=== PATIENT | female | born 2000 | race Caucasian/White ===

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

== ENCOUNTER → 2021-05-31 | Outpatient (CLI) | payer OTHER ==
[2021-05-31 10:25] VITALS: BP 123/84; PULSE 63; RESP 17; TEMP 98.3
--- NOTE | 2021-05-31 13:28 | P.HPOB ---
History of Present Illness H&P Date: 05/31/21 Chief Complaint: The patient is here for her routine gynecologic exam. This is a 21-year-old with an LMP of 05/30/2021. The patient is here to establish with this office. It has been about 4 years since her last pelvic exam. She had a Mirena IUD placed in May 2017. She was amenorrheic with the Mirena IUD until about 6 months ago when she has had episodes of brief spotting about monthly. This is not bothersome to her. She believes she will be having the IUD removed in the upcoming year to attempt . She has been happy with the Mirena IUD as a form of control. She is without gynecologic complaints. Review of Systems The patient's weight has been stable over the last year. She denies respiratory, cardiac, or G.I. problems. Past Medical History Past Medical History: Asthma, Hypertension (She has not been taking blood pressure medication after her prescription ran out one year ago.) Additional Past Medical History / Comment(s): Childhood asthma not requiring medications at this time. Hypertension after her last . 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 Ovarian cysts as a teen. History of Any Multi-Drug Resistant Organisms: None Reported Past Surgical History: No Surgical Hx Reported Past Anesthesia/Blood Transfusion Reactions: No Reported Reaction Past Psychological History: Anxiety, Depression (Current stress with no significant depression at this time.) Smoking Status: Current some day smoker (About 10 cigarettes per week), Vaper (Daily) Past Alcohol Use History: None Reported Past Drug Use History: Marijuana (Daily use at at bedtime.) Additional History: She has been with her boyfriend for 12 years and he live together. She works at [employer]. - Past Family History Mother Family Medical History: No Reported History Additional Family Medical History / Comment(s): Maternal grandfather had throat cancer. Father Family Medical History: GERD/Reflux Additional Family Medical History / Comment(s): Grandparents have hypertension. Medications and Allergies Allergies Allergy/AdvReac Type Severity Reaction Status Date / Time No Known Allergies Allergy Verified 05/07/17 07:22 Exam Vital Signs Temp Pulse Resp BP Pulse Ox 05/31/21 10:21 98.3 F 63 17 123/84 100 Intake and Output 0405/31/21 05/31/21 22:59 06:59 14:59 Other: Weight 85.275 kg Height 5 feet 0 inches, weight 188 pounds, BMI 36.7. This is a well-developed well-nourished white female who is alert and oriented times 3 in no acute distress. HEENT: Within normal limits. NECK: Supple without mass or thyromegaly. CHEST AND LUNGS: Clear to auscultation. HEART: Regular rate and rhythm. BREASTS: Are without mass or discharge. AXILLARY EXAM: Negative for adenopathy. BACK: Negative for CVA tenderness. ABDOMEN: Soft, nontender, without palpable masses. PELVIC EXAM: Normal external genitalia. Cervix and vagina appear normal. No IUD string is visible. There is no cervical motion tenderness. There is no unusual discharge. There is no evidence of prolapse. The uterus is midposition, nongravid size and nontender. There are no palpable adnexal masses or tenderness. RECTAL EXAM: Deferred. EXTREMITIES: Nontender. IMPRESSION: 1. 21-year-old female with normal gynecologic exam. 2. History of Mirena IUD placed 4 years ago with no visible string on exam today. Differential diagnosis will include normal IUDs location with short string within the cervix, IUD expulsion, abnormal uterine positioning, or uterine perforation. 3. History of hypertension after her last currently off of blood pressure medication with no significant blood pressure elevation today. PLAN: 1. Pap smear (cytology only) was performed. 2. Self breast awareness was discussed with the patient. We have also discussed symptoms associated with inflammatory breast cancer. 3. GC and chlamydia screening was obtained from the cervix. 4. Pelvic ultrasound was recommended to determine the location of the IUD. The order slip was given to the patient for this. I have recommended that she use a backup method of control or abstinence at this time. If the IUD is in the proper location, nothing needs to be done until she wants it removed. At that time she can call to make an appointment for removal. If it cannot be removed with simple probing of the endocervix to find the string, she may need to be referred for hysteroscopic removal. She understands the IUD is approved for 5 years use and she should have it removed prior to 12 months from now. 5. I have recommended that she check her own blood pressure on a regular basis and establish with a PCP to determine if she needs to be restarted on antihypertensive medication. We have discussed how weight loss, good nutrition and regular exercise may also help with blood pressure control. 6. When she decides to actively attempting and have the IUD removed, we have discussed how a daily multivitamin with folic acid would be important. 7. The patient was instructed to keep a menstrual calendar and call if she is having menstrual problems. At this time scant menstrual periods with the Mirena IUD is considered normal. 8. She was advised to return in one year for her annual well woman exam and as needed.
[2021-06-02 08:17] LABS: C. trachomatis,PCR Negative (Neg,Equiv); Chlamydia trachomatis Source Cervix; N. gonorrhoeae,PCR Negative (Neg,Equiv); Neisseria Source Cervix
== END ==
LOC: WWCWWP 10:03
PROVIDERS: ATTEND Obstetrics & Gynecology
DX: Z01.419 Encounter for gynecological examination (general) (routine) without abnormal findings (principal); I10 Essential (primary) hypertension; J45.909 Unspecified asthma, uncomplicated; F41.9 Anxiety disorder, unspecified; F17.210 Nicotine dependence, cigarettes, uncomplicated; Z92.0 Personal history of contraception
CPT/HCPCS: 87491; 87591

== ENCOUNTER → 2021-06-16 | Outpatient (CLI) | payer OTHER ==
--- NOTE | 2021-06-16 07:53 | US ---
EXAMINATION TYPE: US pelvic complete DATE OF EXAM: 06/16/2021 COMPARISON: US 2017 CLINICAL HISTORY: T83.32XD DISPLACEMENT INTRAUTERINE DEVICE. IUD placement TECHNIQUE: . Transabdominal sonographic images of the pelvis were acquired. Date of LMP: 06/03/2021 EXAM MEASUREMENTS: Uterus: 8.0 x 4.1 x 5.0 cm Endometrial Stripe: 0.6 cm Right Ovary: 3.6 x 2.4 x 2.5 cm Left Ovary: 2.7 x 1.5 x 2.8 cm 1. Uterus: anteverted 2. Endometrium: IUD appears in place 3. Right Ovary: wnl 4. Left Ovary: wnl 5. Bilateral Adnexa: wnl 6. Posterior cul-de-sac: wnl IMPRESSION: IUD is in place. Examination is otherwise unremarkable.
== END | disposition home or self-care (01) ==
LOC: RADUSWWP 06:58
PROVIDERS: ATTEND Obstetrics & Gynecology
DX: T83.32XD Displacement of intrauterine contraceptive device, subsequent encounter (principal); Y76.8 Miscellaneous obstetric and gynecological devices associated with adverse incidents, not elsewhere classified
CPT/HCPCS: 76856

== ENCOUNTER → 2022-09-11 | Outpatient (CLI) | payer OTHER ==
--- NOTE | 2022-09-11 08:39 | P.HPOB ---
History of Present Illness H&P Date: 09/11/22 Chief Complaint: The patient is here for her routine gynecologic exam. This is a 22-year-old with an LMP of 12/21/2022. The patient has a Mirena IUD in place since May 2017. The patient would like to get in the near future. She is requesting the Mirena IUD be removed. She was seen at the health department and they attempted to remove it but the string was not visible. She was referred to Dr. Rick who attempted to remove it without success. She plans to see a different INSPECTOR OF DREDGING in [place] for a , but has not yet seen that doctor. She recently started having menstrual periods and had been amenorrheic after her Mirena IUD was placed 5 years ago. She is without gynecologic complaints. Review of Systems The patient has gained 22 pounds over the last year. She denies respiratory, cardiac, or G.I. problems. Past Medical History Past Medical History: Asthma, Hypertension (She has not been taking blood pressure medication after her prescription ran out one year ago.) Additional Past Medical History / Comment(s): Childhood asthma not requiring medications at this time. Hypertension after her last . 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 Ovarian cysts as a teen. History of Any Multi-Drug Resistant Organisms: None Reported Past Surgical History: No Surgical Hx Reported Past Anesthesia/Blood Transfusion Reactions: No Reported Reaction Past Psychological History: Anxiety, Depression (Current stress with no significant depression at this time.) Smoking Status: Vaper (Daily) Past Alcohol Use History: None Reported Additional Past Alcohol Use History / Comment(s): She states she quit smoking cigarettes but does vape. Past Drug Use History: Marijuana Additional History: She has smoked marijuana in the past, but quit in 2021. She has been with her boyfriend for since 2009 and lives with him. She works at near at [employer]. - Past Family History Mother Family Medical History: No Reported History Additional Family Medical History / Comment(s): Maternal grandfather had throat cancer. Father Family Medical History: GERD/Reflux Additional Family Medical History / Comment(s): Grandparents have hypertension. Medications and Allergies Home Medications Medication Instructions Recorded Confirmed Type Vit No.179/Iron/Folic 1 tab PO DAILY 09/11/22 09/11/22 History [ Tablet] Allergies Allergy/AdvReac Type Severity Reaction Status Date / Time No Known Allergies Allergy Verified 09/11/22 07:59 Exam Intake and Output 09/10/22 09/11/22 09/11/22 22:59 06:59 14:59 Other: Weight 95.254 kg Blood pressure 121/76, height 5 foot 0 inch, weight 210 pounds, temperature 97.8, pulse 65, pulse oximeter 100%. This is a well-developed well-nourished heavyset white female who is alert and oriented times 3 in no acute distress. HEENT: Within normal limits. NECK: Supple without mass or thyromegaly. CHEST AND LUNGS: Clear to auscultation. HEART: Regular rate and rhythm. BREASTS: Are without mass or discharge. AXILLARY EXAM: Negative for adenopathy. BACK: Negative for CVA tenderness. ABDOMEN: Soft, nontender, without palpable masses. PELVIC EXAM: Normal external genitalia. Cervix and vagina appear normal. There is no IUD string visible. There is no unusual discharge. There is no evidence of prolapse. The uterus is midposition, nongravid size and nontender. There are no palpable adnexal masses or tenderness. Several attempts to locate the IUD string using a Q-tip, endocervical curette, and pointed forceps were used to probe the endocervix without success. RECTAL EXAM: Deferred. EXTREMITIES: Nontender. IMPRESSION: 1. 22-year-old female with Mirena IUD in place since May 2017, with normal gynecologic exam. 2. The Mirena IUD string is not visible and I was unable to locate the string despite probing the endocervix. 3. Patient desires to attempt in the near future. PLAN: 1. Pap smear was deferred since she had a negative Pap smear on 05/31/2021. 2. Self breast awareness was discussed. 3. GC and Chlamydia screening was obtained from the cervix. 4. I have recommended that she establish with the INSPECTOR OF DREDGING in [place] who she was planning on seeing for an upcoming . She should discuss how the Mirena IUD is in place and she wants it removed. She can't see that INSPECTOR OF DREDGING for possible hysteroscopic removal of the IUD. 5. Patient will continue to take a daily multivitamin with folic acid. She should also keep a menstrual calendar. We have discussed how it is important to avoid quitting things into her body such as medications and I have also recommended that she quit that she quit vaping due to risks to her body as well as potential risks to the fetus if she does get . 6. She was advised to return in one year for her annual well woman exam or to establish with another doctor for IUD removal and possible .
[2022-09-11 08:47] VITALS: BP 121/76; PULSE 65; RESP 16; TEMP 97.8
[2022-09-12 14:16] LABS: C. trachomatis,PCR Negative (Negative)
[2022-09-12 14:31] LABS: N. gonorrhoeae,PCR Negative (Negative)
== END ==
LOC: WWCWWP 07:38
PROVIDERS: ATTEND Obstetrics & Gynecology
DX: J45.909 Unspecified asthma, uncomplicated (principal); I10 Essential (primary) hypertension; N83.209 Unspecified ovarian cyst, unspecified side; Z01.419 Encounter for gynecological examination (general) (routine) without abnormal findings; Z97.5 Presence of (intrauterine) contraceptive device; Z87.891 Personal history of nicotine dependence
CPT/HCPCS: 87491; 87591

== ENCOUNTER → 2022-09-28 | Outpatient (CLI) | payer OTHER ==
[2022-09-28 15:01] LABS: Basophils % (A) 0 %; Eosinophils # (A) 0.1 k/uL (0-0.7); Eosinophils % (A) 1 %; HGB 13.9 gm/dL (11.4-16.0); Lymphocytes # (A) 2.6 k/uL (1.0-4.8); Lymphocytes % (A) 31 %; MCH 29.1 pg (25.0-35.0); MCHC 33.1 g/dL (31.0-37.0); MCV 87.8 fL (80.0-100.0); Monocytes # (A) 0.4 k/uL (0-1.0); Monocytes % (A) 5 %; Neutrophils # (A) 5.1 k/uL (1.3-7.7); Neutrophils % (A) 61 %; Platelet Count 249 k/uL (150-450); RBC 4.78 m/uL (3.80-5.40); RDW 12.8 % (11.5-15.5); WBC 8.3 k/uL (3.8-10.6)
== END ==
LOC: PAT 13:52
PROVIDERS: ATTEND Obstetrics & Gynecology
DX: Z01.818 Encounter for other preprocedural examination (principal); Z87.891 Personal history of nicotine dependence
CPT/HCPCS: 85025

== ENCOUNTER 2022-10-08 06:02 | Day surgery (SDC) | payer OTHER ==
[~2022-10-08 06:02] MED LIST: Pre Op ABX Message 1 EACH MISC MISCELLANE ONE
[2022-10-08] MEDS ORDERED: HYDROmorphone 0.5 MG/0.5 ML SYRINGE IVP PRN (06:47)
[2022-10-08] MEDS ORDERED: DEXAMETHASONE SOD PHOSPHATE 4 MG/ML 1 ML VIAL IV ONE (06:47)
[2022-10-08] MEDS ORDERED: ONDANSETRON 4 MG/2 ML VIAL IVP ONE (06:47)
[2022-10-08] MEDS ORDERED: LACTATED RINGERS 1,000 ML IV SCH (06:47)
[2022-10-08] MEDS ORDERED: ONDANSETRON 4 MG/2 ML VIAL ONE (06:50)
--- NOTE | 2022-10-08 07:05 | P.HPOB ---
History of Present Illness H&P Date: 10/08/22 Chief Complaint: retained IUD 22 year old presents for D&C hysteroscopy and removal of IUD.The IUD was placed 5 years ago and is due to be removed. The IUD was attempted to be removed in the office without success. US showed the IUD within the endometrium. Review of Systems All systems: negative Constitutional: Denies chills, Denies fever Eyes: denies blurred vision, denies pain Ears, nose, mouth and throat: Denies headache, Denies sore throat Cardiovascular: Denies chest pain, Denies shortness of breath Respiratory: Denies cough Gastrointestinal: Denies abdominal pain, Denies diarrhea, Denies nausea, Denies vomiting Genitourinary: Denies dysuria, Denies hematuria Musculoskeletal: Denies myalgias Integumentary: Denies pruritus, Denies rash Neurological: Denies numbness, Denies weakness Psychiatric: Denies anxiety, Denies depression Endocrine: Denies fatigue, Denies weight change Past Medical History Past Medical History: Asthma, Hypertension Additional Past Medical History / Comment(s): Childhood asthma not requiring medications at this time. Hypertension after her last . 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 Ovarian cysts as a teen. History of Any Multi-Drug Resistant Organisms: None Reported Past Surgical History: No Surgical Hx Reported Past Anesthesia/Blood Transfusion Reactions: No Reported Reaction Past Psychological History: Anxiety, Depression Smoking Status: Vaper Past Alcohol Use History: None Reported Additional Past Alcohol Use History / Comment(s): She states she quit smoking cigarettes but does vape. Past Drug Use History: Marijuana - Past Family History Mother Family Medical History: No Reported History Additional Family Medical History / Comment(s): Maternal grandfather had throat cancer. Father Family Medical History: GERD/Reflux Additional Family Medical History / Comment(s): Grandparents have hypertension. Medications and Allergies Home Medications Medication Instructions Recorded Confirmed Type Vit No.179/Iron/Folic 1 tab PO DAILY 09/11/22 10/08/22 History [ Tablet] Allergies Allergy/AdvReac Type Severity Reaction Status Date / Time No Known Allergies Allergy Verified 10/08/22 06:41 Exam Osteopathic Statement: *. No significant issues noted on an osteopathic structural exam other than those noted in the History and Physical/Consult. Vital Signs Temp Pulse Resp BP Pulse Ox 10/08/22 06:42 97.6 F 78 16 150/80 98 Intake and Output 10/07/22 10/08/22 10/08/22 22:59 06:59 14:59 Other: Weight 95.3 kg HEart: RRR Lungs: CTAB Abdomen: soft, nontender Extremeties: neg jose's SPec exam: cannot visualize the strings. Assessment and Plan (1) Retained intrauterine contraceptive device (IUD) Current Visit: Yes Status: Acute Code(s): T83.39XA - MECH COMPL OF INTRAUTERINE CONTRACEPTIVE DEVICE, INIT ENCNTR SNOMED Code(s): 360884358 (2) IUD strings lost Current Visit: Yes Status: Acute Code(s): T83.32XA - DISPLACEMENT OF INTRAUTERINE CONTRACEPTIVE DEVICE, INIT SNOMED Code(s): 538042233 Plan: 1. D&C hysteroscopy and removal of IUD
[2022-10-08] MEDS ORDERED: fentaNYL (PF) 50 MCG/ML 2 ML AMP ONE (07:25)
[2022-10-08] MEDS ORDERED: LIDOCAINE 2% INJ 20 MG/ML (2 ML VIAL) ONE (07:25)
[2022-10-08] MEDS ORDERED: MIDAZOLAM 2 MG/2 ML VIAL ONE (07:25)
[2022-10-08] MEDS ORDERED: SUCCINYLCHOLINE CHLORIDE 200 MG/10 ML VIAL IV ONE (07:25)
[2022-10-08] MEDS ORDERED: KETOROLAC 15 MG/ML 1 ML VIAL ONE (07:25)
[2022-10-08] MEDS ORDERED: PROPOFOL 10 MG/ML 20 ML VIAL IV ONE (07:25)
--- NOTE | 2022-10-08 08:08 | P.OP ---
Date of Procedure: 10/08/22 Preoperative Diagnosis: 1. retained IUD 2. lost IUD strings Postoperative Diagnosis: same Procedure(s) Performed: D&C hysteroscopy and removal of IUD Anesthesia: REBECCA Surgeon: Tammy Alfaro Estimated Blood Loss (ml): 3 IV fluids (ml): 500 Urine output (ml): 10 Pathology: other (endometrial currettings) Condition: stable Disposition: PACU Operative Findings: Kyleena IUD seen within endometrium Description of Procedure: Patient was taken to the operating room where general anesthesia was obtained without difficulty. She was Prepped and draped in the normal sterile fashion dorsal lithotomy position, legs placed in candycane stirrups. Bladder drained of all urine. Weighted speculum place in vagina the anterior lip the cervix was grasped with single-tooth tenaculum. The cervix was dilated and the uterus sounded to 8 cm. Hysteroscopy was performed. I did note the IUD within the endometrium the strings coming down through the cervix but not to the external os. Stone forceps were then used to grasp the IUD which was then removed without difficulty. Sharp curet was gently used to obtain minimal wall of endometrial curettings. All instruments removed from the vagina. Patient to our procedure well. Sponge initial counts correct 2. She was taken to recovery in stable condition.
[2022-10-08] MEDS ORDERED: IV FLUID CONTINUATION 1,000 ML IV ONE (08:13)
[2022-10-08 08:17] VITALS: TEMP 97.1
[2022-10-08 08:53] VITALS: RESP 16
[2022-10-08 09:07] VITALS: PULSE 60
[2022-10-08 09:28] VITALS: BP 104/70
== END 2022-10-08 09:46 | disposition home or self-care (01) ==
LOC: OR 06:02
PROVIDERS: ATTEND Obstetrics & Gynecology
DX: Z30.432 Encounter for removal of intrauterine contraceptive device (principal); I10 Essential (primary) hypertension; J45.909 Unspecified asthma, uncomplicated; F17.210 Nicotine dependence, cigarettes, uncomplicated; Z82.49 Family history of ischemic heart disease and other diseases of the circulatory system; Z83.79 Family history of other diseases of the digestive system; Z79.899 Other long term (current) drug therapy
CPT/HCPCS: 81025; 88305; 58562; J2250; J0330; J1100; J2405; J3010; J1885; J2704; J2001

== ENCOUNTER 2023-02-21 20:50 | Emergency (ER) | payer OTHER ==
--- NOTE | 2023-02-21 21:08 | ED ---
General Adult HPI - General Stated complaint: Infected cut Time Seen by Provider: 02/21/23 21:07 - History of Present Illness Initial comments: 23-year-old female presenting to the ED with a chief complaint of skin problem. Patient states she was shaving "down there" 2-3 days ago. Since then, states she has developed swelling and pain of that area prompting presentation to the ED for further evaluation. Denies fever or chills. - Related Data Home Medications Medication Instructions Recorded Confirmed Vit No.179/Iron/Folic 1 tab PO DAILY 09/11/22 10/08/22 [ Tablet] Previous Rx's Medication Instructions Recorded Cephalexin [Keflex] 500 mg PO Q6HR 7 Days #28 cap 02/22/23 Allergies Allergy/AdvReac Type Severity Reaction Status Date / Time No Known Allergies Allergy Verified 02/21/23 21:08 Review of Systems ROS Statement: Those systems with pertinent positive or pertinent negative responses have been documented in the HPI. ROS Other: All systems not noted in ROS Statement are negative. Past Medical History Past Medical History: Asthma, Hypertension Additional Past Medical History / Comment(s): Childhood asthma not requiring medications at this time. Hypertension after her last . 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 Ovarian cysts as a teen. History of Any Multi-Drug Resistant Organisms: None Reported Past Surgical History: No Surgical Hx Reported Past Anesthesia/Blood Transfusion Reactions: No Reported Reaction Past Psychological History: Anxiety, Depression Smoking Status: Vaper Past Alcohol Use History: None Reported Additional Past Alcohol Use History / Comment(s): She states she quit smoking cigarettes but does vape. Past Drug Use History: Marijuana - Past Family History Mother Family Medical History: No Reported History Additional Family Medical History / Comment(s): Maternal grandfather had throat cancer. Father Family Medical History: GERD/Reflux Additional Family Medical History / Comment(s): Grandparents have hypertension. General Exam - General Exam Comments Initial Comments: Visual Physical Exam Vital signs reviewed General: Well-appearing, nontoxic, no acute distress. Head: Normocephalic, atraumatic Eyes: PERRLA, EOMI ENT: Airway patent Chest: Nonlabored breathing Skin: No visual rash, normal skin tone Neuro: Alert and oriented 3 Musculoskeletal: No gross abnormalities General appearance: alert, in no apparent distress Eye exam: Present: normal appearance Neck exam: Present: normal inspection Respiratory exam: Present: normal lung sounds bilaterally Cardiovascular Exam: Present: regular rate, normal rhythm GI/Abdominal exam: Present: soft External exam: Present: other (Chaperoned by Karey BLISS. Warmth, erythema, swelling, tenderness to palpation of the labia minora extending up to the clitoral hppd on the left) Back exam: Present: normal inspection Neurological exam: Present: alert, oriented X3 Skin exam: Present: warm, dry Course Vital Signs 02/21/23 02/22/23 21:05 00:47 Temperature 98.1 F Pulse Rate 107 H 62 Respiratory 20 16 Rate Blood Pressure 155/96 151/94 O2 Sat by Pulse 100 100 Oximetry Medical Decision Making - Medical Decision Making Was pt. sent in by a medical professional or institution ([facility], PUBLIC HEALTH MICROBIOLOGIST, urgent care, hospital, or intermediate...) When possible be specific @ -No Did you speak to anyone other than the patient for history (EMS, parent, family, police, friend...)? What history was obtained from this source @ -No Did you review nursing and triage notes (agree or disagree)? Why? @ -I reviewed and agree with nursing and triage notes Were old charts reviewed (outside hosp., previous admission, EMS record, old EKG, old radiological studies, urgent care reports/EKG's, intermediate records)? Report findings @ -No old charts were reviewed Differential Diagnosis (chest pain, altered mental status, abdominal pain women, abdominal pain men, vaginal bleeding, weakness, fever, dyspnea, syncope, headache, dizziness, GI bleed, back pain, seizure, CVA, palpatations, mental health, musculoskeletal)? @ - Cellulitis, SJS, TEN, Chancroid, syphilis. This is not meant to be an all inclusive list. EKG interpreted by me (3pts min.). @ -None X-rays interpreted by me (1pt min.). @ -None done CT interpreted by me (1pt min.). @ -None done U/S interpreted by me (1pt. min.). @ -None done What testing was considered but not performed or refused? (CT, X-rays, U/S, labs)? Why? @ -None What meds were considered but not given or refused? Why? @ -None Did you discuss the management of the patient with other professionals (professionals i.e. , PA, PUBLIC HEALTH MICROBIOLOGIST, lab, RT, psych nurse, oncology social worker, him specialist, teacher, loans officer, case reviewer)? Give summary @ -No Was smoking cessation discussed for >3mins.? @ -No Was critical care preformed (if so, how long)? @ -No Were there social determinants of health that impacted care today? How? (Homelessness, low income, unemployed, alcoholism, drug addiction, transportation, low edu. Level, literacy, decrease access to med. care, group home, rehab)? @ -No Was there de-escalation of care discussed even if they declined (Discuss DNR or withdrawal of care, Hospice)? DNR status @ -No What co-morbidities impacted this encounter? (DM, HTN, Smoking, COPD, CAD, Cancer, CVA, ARF, Chemo, Hep., AIDS, mental health diagnosis, sleep apnea, morbid obesity)? @ -None Was patient admitted / discharged? Hospital course, mention meds given and route, prescriptions, significant lab abnormalities, going to OR and other pertinent info. @ -Discharge 23-year-old female presenting to the ED with swelling and pain her vulva after shaving 2 days ago. Exam did have findings consistent with cellulitis. Provided a prescription for Keflex. Advised close follow-up with her ENVIRONMENTAL MANAGEMENT SPECIALIST. At this time vital signs stable afebrile. Discharged home in stable condition. Discussed return precautions with patient who verbalizes agreement. Undiagnosed new problem with uncertain prognosis? @ -No Drug Therapy requiring intensive monitoring for toxicity (Heparin, Nitro, Insulin, Cardizem)? @ -No Were any procedures done? @ -No Diagnosis/symptom? @ -Cellulitis Acute, or Chronic, or Acute on Chronic? @ -Acute Uncomplicated (without systemic symptoms) or Complicated (systemic symptoms)? @ -Uncomplicated Side effects of treatment? @ -No Exacerbation, Progression, or Severe Exacerbation? @ -No Poses a threat to life or bodily function? How? (Chest pain, USA, GA, pneumonia, PE, COPD, DKA, ARF, appy, cholecystitis, CVA, Diverticulitis, Homicidal, Suicidal, threat to staff... and all critical care pts) @ -No Disposition Clinical Impression: Cellulitis Disposition: HOME SELF-CARE Condition: Good Instructions (If sedation given, give patient instructions): Cellulitis (ED) Additional Instructions: Please return to the Emergency Department if symptoms worsen or any other concerns. Follow up with your ENVIRONMENTAL MANAGEMENT SPECIALIST. Prescriptions: Cephalexin [Keflex] 500 mg PO Q6HR 7 Days #28 cap Is patient prescribed a controlled substance at d/c from ED?: No Referrals: None,Stated [Primary Care Provider] - 1-2 days Time of Disposition: 00:55
[2023-02-22] MEDS ORDERED: CEPHALEXIN 500MG STARTER PACK 4 CAP BTL PO STA (00:57)
[2023-02-22] MEDS ORDERED: LIDOCAINE 2% GLYDO JELLY 11 ML APPL MUCOUS MEM ONE (01:12)
[2023-02-22 01:20] VITALS: RESP 16
[2023-02-22 02:15] VITALS: BP 134/85; PULSE 89; TEMP 98.6
== END 2023-02-22 02:05 | disposition home or self-care (01) ==
LOC: EC 20:50
DX: N76.2 Acute vulvitis (principal); J45.909 Unspecified asthma, uncomplicated; I10 Essential (primary) hypertension; F17.290 Nicotine dependence, other tobacco product, uncomplicated; Z86.59 Personal history of other mental and behavioral disorders
CPT/HCPCS: 99283

== ENCOUNTER 2023-10-19 11:28 | Outpatient (CLI) | payer OTHER ==
[2023-10-19 12:56] LABS: Appearance,Urine Clear (Clear); Bacteria,Urine Few /hpf; Bilirubin,Urine Negative (Negative); Blood,Urine Negative (Negative); Color,Urine Colorless; Glucose,Urine (UA) Negative (Negative); Ketones,Urine Negative (Negative); Leukocyte Esterase,Urine Moderate (Negative); Mucus,Urine Rare /hpf; Nitrite,Urine Negative (Negative); PH, Urine 6.5 (5.0-8.0); Protein,Urine Negative (Negative); Specific Gravity,Urine 1.011 (1.001-1.035); Squamous Epithelial Cell,Urine 2 /hpf (0-4); Urobilinogen,Urine <2.0 mg/dL (<2.0); WBC,Urine 4 /hpf (0-5)
[2023-10-19 17:13] VITALS: BP 138/79; PULSE 95; RESP 16; TEMP 97.6
--- NOTE | 2023-11-05 20:38 | P.MSEPDOC ---
Presenting Problems - Arrival Data Date of Arrival on Unit: 10/19/23 Time of Arrival on Unit: 11:28 Mode of Transport: Wheelchair - Complaint OB-Reason for Admission/Chief Complaint: Possible Onset of Labor Comment: c/o contractions and possible ROM. Medical History - Information : 3 Para: 2 Term: 1 : 1 Number of Living Children: 2 - Gestational Age Gestational Age by KENNEDI (wks/days): 32 Weeks and 6 Days Review of Systems - Review of Systems Constitutional: No problems Breast: No problems ENT: No problems Cardiovascular: No problems Respiratory: No problems Gastrointestinal: No problems Genitourinary: No problems Musculoskeletal: No problems Neurological: No problems Skin: No problems Vital Signs - Temperature Temperature: 97.6 F Temperature Source: Temporal Artery Scan - Pulse Pulse Oximetery Pulse Rate: 95 Pulse Assessment Method: Pulse Oximetry - Respirations Respiratory Rate: 16 Oxygen Delivery Method: Room Air O2 Sat by Pulse Oximetry: 98 - Blood Pressure Right Arm Blood Pressure: 138/79 Blood Pressure Mean: 98 Blood Pressure Source: Automatic Cuff Medical Screen Scoring - Assessment - Baby A Baseline FHR: 125 Heart Rate - NICHD Category: Category I (Normal) NST: Reactive Physician Notification - Physician Notified Physician Notified Date: 10/19/23 Physician Notified Time: 12:08 Physician: Katy Gonsalves New Order Received: Yes - Notification Comment Comment: inital orders at 1208 for UA and cervical exam. Additional orders at 1302 for additional hour of fht/toco monitoring, urine culture, and LR IV bolus if pt desires. Maternal Triage Index - Maternal Triage Index Presenting for scheduled procedure w/no complaint: No - Stat/Priority 1 Stat Priority 1: No - Urgent/Priority 2 Urgent Priority 2: Yes Provider Notified: Katy Gonsalves Provider Notified Time: 12:08 Criteria Met for Priority 2: c/o contractions and possible SROM. Disposition - Disposition OB Disposition: Triage, Discharge to home Discharge Date: 10/19/23 Discharge Time: 14:18 I agree with the RN Medical Screening Exam: Yes Physician's MSE Comment: I have neither seen nor examined the patient Case reviewed; plan agreed upon as documented in EMR&OBIX.: Yes Diagnosis: FALSE LABOR BEFORE 37 COMPLETED WEEKS OF GEST, SECOND TRI
== END 2023-10-19 14:18 | disposition home or self-care (01) ==
LOC: FBPOP 11:28
PROVIDERS: ATTEND Obstetrics & Gynecology
CPT/HCPCS: 59025; 81001; 84112; 96360; 99214

== ENCOUNTER 2023-11-15 18:52 | Outpatient (CLI) | payer OTHER ==
[2023-11-15 20:30] VITALS: BP 133/86; PULSE 109; RESP 18; TEMP 98.6
--- NOTE | 2023-11-28 09:55 | P.MSEPDOC ---
Presenting Problems - Arrival Data Date of Arrival on Unit: 11/15/23 Time of Arrival on Unit: 18:52 Mode of Transport: Ambulatory - Complaint OB-Reason for Admission/Chief Complaint: Rule Out SROM Comment: increased vaginal discharge/leaking, spotting, mild cramping Medical History - Information : 3 Para: 2 Term: 1 : 1 Abortions: Spontaneous or Elective: 0 Number of Living Children: 2 - Gestational Age Gestational Age by KENNEDI (wks/days): 36 Weeks and 5 Days - History Complications: Prior Review of Systems - Review of Systems Constitutional: No problems Breast: No problems ENT: No problems Cardiovascular: No problems Respiratory: No problems Gastrointestinal: No problems Genitourinary: No problems Musculoskeletal: No problems Neurological: No problems Skin: No problems Vital Signs - Temperature Temperature: 98.6 F Temperature Source: Oral - Pulse Pulse Oximetery Pulse Rate: 109 Pulse Assessment Method: Pulse Oximetry - Respirations Respiratory Rate: 18 Oxygen Delivery Method: Room Air O2 Sat by Pulse Oximetry: 97 - Blood Pressure Right Arm Blood Pressure: 133/86 Blood Pressure Mean: 101 Blood Pressure Source: Automatic Cuff Medical Screen Scoring - Cervical Exam Dilation (cm): 4 Effacement (%): 80 Station: -2 Membranes: Intact - Uterine Contractions Resting: Soft to palpation - Assessment - Baby A Baseline FHR: 145 Heart Rate - NICHD Category: Category I (Normal) NST: Reactive Physician Notification - Physician Notified Physician Notified Date: 11/15/23 Physician Notified Time: 19:46 Physician: Sussy Salcido New Order Received: Yes - Notification Comment Comment: Dr. Salcido called, report given on maternal c/o increased vaginal discharge/leaking all day, spotting, and irregular contractions. No bleeding/spotting noted, amnisure negative, SVE 4/70-80/-2. Cervix was 3/80 on saturday at her appointment. No contractions noted via TOCO or palpation but pt reports irregular "cramping". Orders to recheck cervix after 1hr and discharge home if no change. Maternal Triage Index - Maternal Triage Index Presenting for scheduled procedure w/no complaint: No - Stat/Priority 1 Stat Priority 1: No - Urgent/Priority 2 Urgent Priority 2: No - Prompt/Priority 3 Prompt Priority 3: Yes Criteria Met for Priority 3: 36 5/7 wks, c/o vaginal discharge/leaking, spotting, mild cramping Disposition - Disposition OB Disposition: Discharge to home Discharge Date: 11/15/23 Discharge Time: 20:20 I agree with the RN Medical Screening Exam: Yes Case reviewed; plan agreed upon as documented in EMR&OBIX.: Yes Diagnosis: FALSE LABOR AT OR AFTER 37 COMPLETED WEEKS OF GESTATION
== END 2023-11-15 20:20 | disposition home or self-care (01) ==
LOC: FBPOP 18:52
PROVIDERS: ATTEND Obstetrics & Gynecology Obstetrics
CPT/HCPCS: 59025; 84112; 99213

== ENCOUNTER 2023-11-18 22:29 | Inpatient (IN) | payer OTHER ==
[2023-11-18] MEDS ORDERED: TERBUTALINE 1 MG/ML VIAL SQ PRN (22:51)
[2023-11-18] MEDS ORDERED: LIDOCAINE 0.5% (PF) 5 MG/ML (50 ML SDV) SQ PRN (22:51)
[2023-11-18] MEDS ORDERED: OXYTOCIN 10 UNIT/ML 1 ML VIAL IM PRN (22:51)
[2023-11-18] MEDS ORDERED: miSOPROStoL 200 MCG TAB RECTAL PRN (22:51)
[2023-11-18] MEDS ORDERED: TRANEXAMIC 1,000 MG/100ML-NACL 1,000 MG in EMPTY BAG 1 BAG IV PRN (22:51)
[2023-11-18] MEDS ORDERED: CARBOPROST TROMETHAMINE 250 MCG/ML 1 ML AMP IM PRN (22:51)
[2023-11-18] MEDS ORDERED: miSOPROStoL 200 MCG TAB PO PRN (22:51)
[2023-11-18] MEDS ORDERED: METHYLERGONOVINE 0.2 MG/ML 1 ML AMP IM PRN (22:51)
[2023-11-18] MEDS ORDERED: OXYTOCIN 30 UNITS/500 ML NS 30 UNIT in SALINE 1 500ML.BAG IV SCH (23:00)
[2023-11-18] MEDS: LABETALOL 200 MG TAB PO STA (23:01)
[2023-11-18] MEDS: LACTATED RINGERS 1,000 ML IV SCH (23:14)
[2023-11-18 23:24] LABS: Basophils % (A) 0 %; Eosinophils # (A) 0.1 k/uL (0-0.7); Eosinophils % (A) 1 %; HCT 37.5 % (34.0-46.0); HGB 12.7 gm/dL (11.4-16.0); Lymphocytes # (A) 2.3 k/uL (1.0-4.8); Lymphocytes % (A) 18 %; MCH 30.4 pg (25.0-35.0); MCHC 33.8 g/dL (31.0-37.0); MCV 89.9 fL (80.0-100.0); Mean Platelet Volume 9.9; Monocytes # (A) 0.5 k/uL (0-1.0); Monocytes % (A) 4 %; Neutrophils # (A) 9.7 k/uL (1.3-7.7); Neutrophils % (A) 75 %; Platelet Count 278 k/uL (150-450); RBC 4.18 m/uL (3.80-5.40); RDW 13.6 % (11.5-15.5); WBC 12.9 k/uL (3.8-10.6)
[2023-11-18 23:57] LABS: ALT 14 U/L (4-34); AST 16 U/L (14-36); African American GFR (CKD) >90 (>60 ml/min/1.73 sqM); Blood Urea Nitrogen 9 mg/dL (7-17); LDH 161 U/L (120-246); Non-African American GFR(CKD) >90 (>60 ml/min/1.73 sqM); Uric Acid 4.3 mg/dL (3.7-7.4)
[2023-11-19 00:08] LABS: INR 0.8 (<1.2); Partial Thromboplastin Time 22.1 sec (22.0-30.0); Prothrombin Time 9.3 sec (10.0-12.5)
[2023-11-19] MEDS ORDERED: SODIUM CHLORIDE 0.9% 250 ML BAG ONE (00:29)
[2023-11-19] MEDS ORDERED: fentaNYL (PF) 50 MCG/ML 5 ML AMP ONE (00:29)
[2023-11-19] MEDS ORDERED: ROPIVACAINE 5 MG/ML 30 ML VIAL ONE (00:29)
[2023-11-19] MEDS ORDERED: HYDROCORTISONE 2.5% RECTAL CREAM 30 GM TUBE RECTAL PRN (02:24)
[2023-11-19] MEDS ORDERED: diphenhydrAMINE 25 MG CAP PO PRN (02:24)
[2023-11-19] MEDS ORDERED: diphenhydrAMINE 50 MG/ML 1 ML VIAL IVP PRN ×2 (02:24)
[2023-11-19] MEDS ORDERED: ZOLPIDEM 5 MG TAB PO PRN (02:24)
[2023-11-19] MEDS ORDERED: SIMETHICONE 80 MG CHEWABLE PO PRN (02:24)
[2023-11-19] MEDS ORDERED: diphenhydrAMINE 50 MG CAP PO PRN (02:24)
[2023-11-19] MEDS ORDERED: LANOLIN CREAM 1 GM TUBE TOPICAL PRN (02:24)
--- NOTE | 2023-11-19 02:32 | P.HPOB ---
History of Present Illness H&P Date: 11/18/23 Chief Complaint: SROM 23 year old presents at 37 weeks 2 days with SROM at 2200. Her cervix is 4/80/-2 and she is lena irregularly. heart tones 140 with moderate variability and reactive. Her BPs were elevated on admission and pre-e labs drawn. 200mg of oral labetalol given which did help to improve BPs. Review of Systems All systems: negative Constitutional: Denies chills, Denies fever Eyes: denies blurred vision, denies pain Ears, nose, mouth and throat: Denies headache, Denies sore throat Cardiovascular: Denies chest pain, Denies shortness of breath Respiratory: Denies cough Gastrointestinal: Denies abdominal pain, Denies diarrhea, Denies nausea, Denies vomiting Genitourinary: Denies dysuria, Denies hematuria Musculoskeletal: Denies myalgias Integumentary: Denies pruritus, Denies rash Neurological: Denies numbness, Denies weakness Psychiatric: Denies anxiety, Denies depression Endocrine: Denies fatigue, Denies weight change Past Medical History Past Medical History: Asthma, Hypertension Additional Past Medical History / Comment(s): Childhood asthma not requiring medications at this time. Hypertension after her last . 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 Ovarian cysts as a teen. History of Any Multi-Drug Resistant Organisms: None Reported Past Surgical History: No Surgical Hx Reported Past Anesthesia/Blood Transfusion Reactions: No Reported Reaction Past Psychological History: Anxiety, Depression Smoking Status: Never smoker Past Alcohol Use History: None Reported Additional Past Alcohol Use History / Comment(s): She states she quit smoking cigarettes but does vape. Past Drug Use History: Marijuana - Past Family History Mother Family Medical History: No Reported History Additional Family Medical History / Comment(s): Maternal grandfather had throat cancer. Father Family Medical History: GERD/Reflux Additional Family Medical History / Comment(s): Grandparents have hypertension. Medications and Allergies Home Medications Medication Instructions Recorded Confirmed Type Vit No.179/Iron/Folic 1 tab PO DAILY 09/11/22 11/18/23 History [ Tablet] Aspirin [Adult Low Dose Aspirin EC] 81 mg PO DAILY 10/19/23 11/18/23 History Calcium Carbonate [Tums] 500 mg PO TID 11/15/23 11/18/23 History Famotidine [Pepcid] 10 mg PO DAILY PRN 11/18/23 11/18/23 History Allergies Allergy/AdvReac Type Severity Reaction Status Date / Time No Known Allergies Allergy Verified 11/18/23 22:33 Exam Osteopathic Statement: *. No significant issues noted on an osteopathic structural exam other than those noted in the History and Physical/Consult. Vital Signs Temp Pulse Resp BP Pulse Ox 11/18/23 22:56 98.8 F 117 H 16 200/117 11/18/23 22:33 98.8 F 117 H 16 200/117 98 Intake and Output 11/18/23 11/18/23 11/19/23 14:59 22:59 06:59 Other: Weight 90.718 kg HEart: RRR Lungs: CTAB Abdomen: soft, nontender Extremeties: neg jose's Results Result Diagrams: 11/18/23 22:51 11/18/23 23:04 Abnormal Lab Results - Last 24 Hours (Table) 11/18/23 11/18/23 11/18/23 Range/Units 22:51 23:04 23:04 WBC 12.9 H (3.8-10.6) k/uL Neutrophils # 9.7 H (1.3-7.7) k/uL PT 9.3 L (10.0-12.5) sec Fibrinogen 579 H (200-500) mg/dL Creatinine 0.46 L (0.52-1.04) mg/dL Assessment and Plan (1) Spontaneous rupture of amniotic membranes Current Visit: Yes Status: Acute Code(s): [id number] - SNOMED Code(s): 05341 4005 (2) Gestational hypertension Current Visit: Yes Status: Acute Code(s): O13.9 - GESTATIONAL HTN W/O SIGNIFICANT PROTEINURIA, UNSP TRIMESTER SNOMED Code(s): 50974435 (3) 37 weeks gestation of Current Visit: Yes Status: Acute Code(s): Z3A.37 - 37 WEEKS GESTATION OF P REGNANCY SNOMED Code(s): 88094199 Plan: 1. admit to [facility] 2. expectant management 3. anticipate normal vaginal delivery
[2023-11-19] MEDS: OXYTOCIN 30 UNITS/500 ML NS 30 UNIT in SALINE 1 500ML.BAG IV SCH (02:33)
--- NOTE | 2023-11-19 02:35 | P.PROBDLV ---
Vaginal Delivery Note - . Vaginal Delivery Note: 23 year old presents at 37 weeks 2 days with SROM at 2200. Her cervix is 4/80/-2 and she is lena irregularly. heart tones 140 with moderate variability and reactive. Her BPs were elevated on admission and pre-e labs drawn. 200mg of oral labetalol given which did help to improve BPs. Patient was admitted to or room and did get an epidural. She was comfortable with this. Category 2 heart tones were managed with position changes and oxygen. Her cervix was completely dilated at 2 AM. She pushed, a viable male over intact perineum under epidural anesthesia at 2:08 AM. Head delivered OA, anterior shoulder delivered gentle downward guidance for by posterior shoulder and rest of body. Nose and mouth bulb suctioned, cord clamped cut, placed on mother's abdomen. Apgars 8, 9, weight 5 pounds 3.4 ounces. Placenta delivered spontaneously, intact with three-vessel cord at 2:12 AM. Vagina, cervix, perineum inspected. No lacerations noted. Estimated blood loss 10 mL. Mother and baby in stable condition.
[2023-11-19 02:41] LABS: Appearance,Urine Clear (Clear); Bilirubin,Urine Negative (Negative); Blood,Urine Negative (Negative); Color,Urine Yellow; Glucose,Urine (UA) Negative (Negative); Ketones,Urine Negative (Negative); Leukocyte Esterase,Urine Negative (Negative); Nitrite,Urine Negative (Negative); Protein,Urine Trace (Negative); Specific Gravity,Urine 1.027 (1.001-1.035)
[2023-11-19] MEDS: BENZOCAINE/MENTHOL SPRAY 1 GM/SPRAY AEROSOL TOPICAL PRN (03:14)
[2023-11-19 03:20] LABS: Creatinine,Urine Random 165.7 mg/dL
[2023-11-19] MEDS: SENNOSIDES-DOCUSATE SODIUM 1 EACH TAB PO SCH (08:11)
[2023-11-19] MEDS: IBUPROFEN 800 MG TAB PO SCH (08:11)
[2023-11-19] MEDS: ACETAMINOPHEN TAB 500 MG TAB PO SCH (08:12)
[2023-11-19] MEDS: LABETALOL 200 MG TAB PO SCH (14:05)
[2023-11-19 23:58] VITALS: RESP 16
[2023-11-20 08:14] VITALS: TEMP 98.1
[2023-11-20 09:01] VITALS: BP 165/106; PULSE 87
--- NOTE | 2023-11-20 13:01 | P.DS ---
Providers Date of admission: 11/18/23 22:49 Expected date of discharge: 11/20/23 Attending physician: Tammy Alfaro Primary care physician: Stated None - Discharge Diagnosis(es) (1) Spontaneous rupture of amniotic membranes Current Visit: Yes Status: Resolved (2) Gestational hypertension Current Visit: Yes Status: Resolved (3) 37 weeks gestation of Current Visit: Yes Status: Resolved (4) Status post normal vaginal delivery Current Visit: Yes Status: Acute (5) Gestational hypertension Current Visit: Yes Status: Acute Hospital Course: pt presented with SROM. She underwent a normal vaginal delivery. She did have some elevated BPs put on labetalol which is controlling it well. normal pre-e labs. no s/s pre-eclampsia. f/u in one week. Plan - Discharge Summary New Discharge Prescriptions: New Labetalol [Trandate] 100 mg PO BID #60 tablet Ibuprofen [Motrin] 800 mg PO Q8HR #30 tab No Action Famotidine [Pepcid] 10 mg PO DAILY PRN PRN Reason: Heartburn Vit No.179/Iron/Folic [ Tablet] 1 tab PO DAILY Aspirin [Adult Low Dose Aspirin EC] 81 mg PO DAILY Calcium Carbonate [Tums] 500 mg PO TID Discharge Medication List Vit No.179/Iron/Folic [ Tablet] 1 tab PO DAILY 09/11/22 [History] Aspirin [Adult Low Dose Aspirin EC] 81 mg PO DAILY 10/19/23 [History] Calcium Carbonate [Tums] 500 mg PO TID 11/15/23 [History] Famotidine [Pepcid] 10 mg PO DAILY PRN 11/18/23 [History] Ibuprofen [Motrin] 800 mg PO Q8HR #30 tab 11/20/23 [Rx] Labetalol [Trandate] 100 mg PO BID #60 tablet 11/20/23 [Rx] Follow up Appointment(s)/Referral(s): Tammy Alfaro DO [Doctor of Osteopathic Medicine] - 12/31/23 11:30 am Discharge Disposition: HOME SELF-CARE
== END 2023-11-20 15:30 | disposition home or self-care (01) | DRG 560 ==
LOC: FBPOP 22:29 → 4FBP 22:49
PROVIDERS: ADMIT Obstetrics & Gynecology; ATTEND Obstetrics & Gynecology
PROC: 10E0XZZ Delivery of Products of Conception, External Approach (ICD-10-PCS; principal; 2023-11-19)
DX: O13.4 Gestational [pregnancy-induced] hypertension without significant proteinuria, complicating childbirth (principal); O99.334 Smoking (tobacco) complicating childbirth; F17.290 Nicotine dependence, other tobacco product, uncomplicated; Z3A.37 37 weeks gestation of pregnancy; Z37.0 Single live birth; Z28.310 Unvaccinated for COVID-19; Z28.21 Immunization not carried out because of patient refusal; Z79.82 Long term (current) use of aspirin; Z79.1 Long term (current) use of non-steroidal anti-inflammatories (NSAID)
CPT/HCPCS: 59025; 81003; 82565; 82570; 83615; 84112; 84156; 84450; 84460; 84520; 84550; 85025; 85384; 85610; 85730; 86850; 86900; 86901; 88307; 99213